=== PATIENT | female | born 1990 | race Caucasian/White ===

== ENCOUNTER 2019-11-27 14:50 | Emergency (ER) | payer MEDICAID, OTHER ==
[~2019-11-27] VITALS: Ht 160 cm; Wt 56.7 kg
[2019-11-27 14:50] VITALS: BP_SYST 105
--- NOTE | 2019-11-27 14:50 | NUR ---
BROUGHT BACK TO BED #7 AND TRIAGED. REPORT GIVEN TO CHOLO
--- NOTE | 2019-11-27 15:05 | NUR ---
Patient presented to ER C/O left foot pain. Patient using crutches, patient states she is unable to bear weight, 10/10 while bearing weight. Patient states she ran a /2 marathon x2 weekends.
--- NOTE | 2019-11-27 15:20 | NUR ---
ER Dr. SHI at bedside examining patient.
--- NOTE | 2019-11-27 15:30 | NUR ---
RADIOLOGY STAFF AT FOR PORTABLE X-RAY
[2019-11-27] MEDS ORDERED: IBUPROFEN 400 MG TABLET PO ONE (16:00)
[2019-11-27 16:21] VITALS: BP_SYST 105
--- NOTE | 2019-11-27 16:22 | NUR ---
Patient given written and verbal discharge instructions and verbalizes understanding. ER MD discussed with patient the results and treatment provided. Patient in stable condition. ID arm band removed. Rx of Motrin given. Patient educated on pain management and to follow up with PMD. Pain Scale 0/10. Opportunity for questions provided and answered. Medication side effect fact sheet provided.
== END 2019-11-27 16:22 | disposition home or self-care (01) ==
LOC: SED 14:50
DX: M79.672 Pain in left foot (principal)
CPT/HCPCS: 99283

== ENCOUNTER 2023-02-17 14:05 | Emergency (ER) | payer MEDICAID ==
[~2023-02-17] VITALS: Ht 160 cm; Wt 53.5 kg
[2023-02-17 14:50] VITALS: BP_SYST 18; PULSE 60; RESP 16; TEMP 98.2; O2SAT 98
[2023-02-17 16:45] LABS: BASOPHILS % (AUTO) 0.1 % (0.0-2.0); EOSINOPHILS % (AUTO) 0.1 % (0.0-4.0); HEMATOCRIT 36.7 % (36-48); HEMOGLOBIN 12.5 g/dL (12.0-16.0); LYMPHOCYTES # (AUTO) 0.4 K/uL (1.0-5.5); LYMPHOCYTES % (AUTO) 4.9 % (20.5-51.5); MEAN CORPUSCULAR HEMOGLOBIN 32 pg (27-31); MEAN CORPUSCULAR HGB CONC 34 % (32-36); MEAN CORPUSCULAR VOLUME 94 fL (79.0-98.0); MONOCYTES # (AUTO) 0.4 K/uL (0.0-1.0); MONOCYTES % (AUTO) 4.9 % (1.7-9.3); NEUTROPHILS # (AUTO) 7.3 K/uL (1.8-7.7); PLATELET COUNT (AUTO) 170 K/uL (130-430); RED CELL DISTRIBUTION WIDTH 12.7 % (9.0-15.0); WHITE BLOOD COUNT (AUTO) 8.1 K/uL (4.8-10.8)
[2023-02-17 17:20] LABS: ANION GAP 8 (5-15); CARBON DIOXIDE 26 mmol/L (23-29); CHLORIDE 102 mmol/L (98-107); CREATINE KINASE, TOTAL 50 U/L (26-192); CREATININE 0.58 mg/dL (0.55-1.30); GFR AFRICAN AMERICAN 155 mL/min (>90); GFR NON AFRICAN-AMERICAN 128 mL/min (>90); GLUCOSE 111 mg/dL (74-106); POTASSIUM 3.9 mmol/L (3.5-5.1); SODIUM SERUM 136 mmol/L (136-145); UREA NITROGEN, BLOOD 9 mg/dL (8-21)
[2023-02-17] MEDS ORDERED: ACETAMINOPHEN 500 MG TABLET PO ONE (18:00)
[2023-02-17 18:42] VITALS: PULSE 74; RESP 20; TEMP 99.3; O2SAT 99
== END 2023-02-17 18:42 | disposition home or self-care (01) ==
LOC: SED 14:05
DX: R55 Syncope and collapse (principal); Z79.899 Other long term (current) drug therapy
CPT/HCPCS: 36415; 80048; 82550; 83605; 84484; 85025; 93005; 99284